=== PATIENT | male | born 1930 | race Caucasian/White ===

== ENCOUNTER → 2016-02-27 | Outpatient (CLI) | payer MEDICARE, OTHER | LOC: GMA 18:19 | PROVIDERS: ATTEND Nurse Practitioner Family | DX: N39.0 Urinary tract infection, site not specified (principal) ==

== ENCOUNTER 2016-06-09 06:15 | Emergency (ER) | payer MEDICARE, OTHER ==
[2016-06-09 06:38] VITALS: TEMP 98
--- NOTE | 2016-06-09 06:58 | ED.PDOC ---
History of Present Illness - General Source: patient, RN notes reviewed, Vital Signs reviewed, family - Son Exam Limitations: no limitations - History of Present Illness Initial Comments: Patient is an 85 y/o male who has a history of prostate cancer treated with radiation years ago. Recently he has had problems with urinary retention which has required him to have a hunter placed several times in the past several months. He saw Dr. Austin, his urologist, last week and had a hunter removed. He didn't have any problem until yesterday. He has not urinated since yesterday afternoon and he has gotten quite uncomfortable. He denies any dysuria. Timing/Duration: yesterday Quality: severe, other - pressure Onset Location: urethral Radiation: none Activites at Onset: none Prior abdominal problems: similar symptoms Improving Factors: nothing Worsening Factors: nothing Associated Symptoms: denies symptoms <Bindu Willis - Last Filed: 06/09/16 06:54> <Roosevelt Simmons - Last Filed: 06/09/16 07:20> - General Chief Complaint: Problem Stated Complaint: urge to void Time Seen by Provider: 06/09/16 06:54 - History of Present Illness Allergies/Adverse Reactions: Allergies NO KNOWN ALLERGY Allergy (Verified 06/09/16 06:41) Home Medications: Ambulatory Orders Amlodipine Besylate-Olmesartan [Timmy] 1 tab PO DAILY 06/09/16 Aspirin [Aspirin Childrens] 81 mg PO DAILY 06/09/16 Carvedilol [Coreg] 25 mg PO BID 06/09/16 Docusate Sodium [Colace Cap] 100 mg PO DAILY 06/09/16 Glipizide 5 mg PO DAILY@0700 06/09/16 Meloxicam [Mobic] 15 mg PO DAILY 06/09/16 Methocarbamol 500 mg PO TID 06/09/16 Pancrelipase (Lipase-Protease- [Zenpep] 1 cap PO TID 06/09/16 Simvastatin 20 mg PO DAILY 06/09/16 Spironolactone 25 mg PO DAILY 06/09/16 Sulfa/Trimeth 800/160 (Ds) Tab [Bactrim DS Tab] 1 ea PO BID #14 tab 06/09/16 Review of Systems - Review of Systems Constitutional: States: no symptoms reported EENTM: States: no symptoms reported Respiratory: States: no symptoms reported Cardiology: States: no symptoms reported Gastrointestinal/Abdominal: States: no symptoms reported Genitourinary: States: other - retention Musculoskeletal: States: no symptoms reported Skin: States: no symptoms reported Neurological: States: no symptoms reported Endocrine: States: no symptoms reported Hematologic/Lymphatic: States: no symptoms reported All other Systems: Reviewed and Negative <WillisBindu Arya - Last Filed: 06/09/16 06:54> Past Medical History (General) - Patient Medical History Hx Cardiac Disorders: Yes Hx Hypertension: Yes Hx Diabetes: Yes - 2006 Hx Cancer: Yes - prostate CA Surgical History: other - Vaccination History Hx Tetanus, Diphtheria Vaccination: No Hx Influenza Vaccination: No Hx Pneumococcal Vaccination: No - Social History Hx Alcohol Use: No Hx Substance Use: No <WillisBindu Arya - Last Filed: 06/09/16 06:54> Family Medical History - Family History Father Family History: Unknown Living Status: Hx Family Hypertension: Yes <Bindu Willis Arya - Last Filed: 06/09/16 06:54> Physical Exam - Physical Exam General Appearance: Alert, Comfortable - after hunter inserted, No apparent distress Eyes, Ears, Nose, Throat Exam: normal ENT inspection Neck: supple Cardiovascular/Respiratory: regular rate, rhythm, normal breath sounds, no respiratory distress Gastrointestinal/Abdominal: normal bowel sounds, non tender, soft, no organomegaly Back Exam: no CVA tenderness Extremity: normal range of motion - for age, non-tender, normal inspection, no pedal edema, no calf tenderness Neurologic: alert, normal mood/affect, oriented x 3 Skin Exam: normal color, warm/dry <Bindu Willis Arya - Last Filed: 06/09/16 06:54> Progress - Progress Progress: 06/09/16 06:59 About 900 mL urine returned after hunter placed. Patient felt much better. 06/09/16 07:01 Care turned over to Dr. Howell at 0701. - Results/Orders Results/Orders: 06/09/16 06:25 Temperature 98.0 F Pulse Rate [ 87 left] Respiratory 18 Rate Blood Pressure 133/83 [left] O2 Sat by Pulse 96 Oximetry - EKG/XRAY/CT CT Interpretation Call Back: Yes <Bindu Willis - Last Filed: 06/09/16 06:54> - Results/Orders Results/Orders: 06/09/16 06:42 Catheter:Hunter ONCE 06/09/16 06:43 URINE CULTURE W/COLONY COUNT Stat Laboratory Results Urine Color Yellow (Yellow) 06/09/16 06:43 Urine Appearance Sl cloudy (Clear) 06/09/16 06:43 Urine pH 5.5 (4.5-7.8) 06/09/16 06:43 Ur Specific [place] 1.015 (1.005-1.030) 06/09/16 06:43 Urine Protein Negative mg/dL 06/09/16 06:43 Urine Glucose (UA) Negative mg/dL (Negative) 06/09/16 06:43 Urine Ketones Trace mg/dL (NEGATIVE) 06/09/16 06:43 Urine Blood Negative (Negative) 06/09/16 06:43 Urine Nitrite Negative 06/09/16 06:43 Urine Bilirubin Negative (NEGATIVE) 06/09/16 06:43 Urine Urobilinogen 0.2 mg/dL (0.2-1.0) 06/09/16 06:43 Ur Leukocyte Esterase Small (Negative) H 06/09/16 06:43 Urine RBC 0 /hpf 06/09/16 06:43 Urine WBC 10-20 /hpf H 06/09/16 06:43 Ur Epithelial Cells 1-3 /hpf 06/09/16 06:43 Urine Bacteria 1+ 06/09/16 06:43 <Roosevelt Simmons R - Last Filed: 06/09/16 07:20> Departure - Departure Diet: resume usual diet <Bindu Willis K - Last Filed: 06/09/16 06:54> - Departure Time of Disposition: 07:14 <Roosevelt Simmons R - Last Filed: 06/09/16 07:20> - Departure Clinical Impression: Retention of urine, History of prostate cancer, History of prostate surgery Urinary tract infection Qualifiers: Urinary tract infection type: site unspecified Hematuria presence: without hematuria Qualified Code(s): N39.0 - Urinary tract infection, site not specified Disposition: Discharge to Home or Self Care Condition: Fair Departure Forms: ED Discharge - Pt. Copy, Patient Portal Self Enrollment Referrals: ANYI AUSTIN MD [Referring] - 1-5 Days Prescriptions: Sulfa/Trimeth 800/160 (Ds) Tab [Bactrim DS Tab] 1 ea PO BID #14 tab Home Medications: Ambulatory Orders Amlodipine Besylate-Olmesartan [Timmy] 1 tab PO DAILY 06/09/16 Aspirin [Aspirin Childrens] 81 mg PO DAILY 06/09/16 Carvedilol [Coreg] 25 mg PO BID 06/09/16 Docusate Sodium [Colace Cap] 100 mg PO DAILY 06/09/16 Glipizide 5 mg PO DAILY@0700 06/09/16 Meloxicam [Mobic] 15 mg PO DAILY 06/09/16 Methocarbamol 500 mg PO TID 06/09/16 Pancrelipase (Lipase-Protease- [Zenpep] 1 cap PO TID 06/09/16 Simvastatin 20 mg PO DAILY 06/09/16 Spironolactone 25 mg PO DAILY 06/09/16 Sulfa/Trimeth 800/160 (Ds) Tab [Bactrim DS Tab] 1 ea PO BID #14 tab 06/09/16 Additional Instructions: RETURN TO EMERGENCY ROOM NEEDED;CALL UP DR. AUSTIN TODAY FOR APPOINTMENT
[2016-06-09 07:51] VITALS: BP 138/73; O2SAT 94
== END 2016-06-09 07:30 | disposition home or self-care (01) ==
LOC: ER 06:15
DX: R33.9 Retention of urine, unspecified (principal); N39.0 Urinary tract infection, site not specified; I10 Essential (primary) hypertension; E11.9 Type 2 diabetes mellitus without complications; Z85.46 Personal history of malignant neoplasm of prostate; Z79.82 Long term (current) use of aspirin; Z79.899 Other long term (current) drug therapy

== ENCOUNTER 2016-06-13 20:42 | Emergency (ER) | payer MEDICARE, OTHER ==
--- NOTE | 2016-06-13 22:09 | ED.PDOC ---
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 He had a new hunter placed on 06/09/2016 due to urinary retention. He comes in tonight because he has had no UOP into his bag and he feels like his bladder is getting full. He didn't want to wait long to come in to have it evaluated. He has mild suprapubic tenderness. He is currently on Bactrim DS. Timing/Duration: 4-6 hours Severity: mild, moderate Improving Factors: nothing Worsening Factors: nothing Associated Symptoms: denies symptoms Allergies/Adverse Reactions: Allergies NO KNOWN ALLERGY Allergy (Verified 06/13/16 21:27) Home Medications: Ambulatory Orders Amlodipine Besylate-Olmesartan [Timmy] 1 tab PO DAILY 06/09/16 Aspirin [Aspirin Childrens] 81 mg PO DAILY 06/09/16 Carvedilol [Coreg] 25 mg PO BID 06/09/16 Docusate Sodium [Colace Cap] 100 mg PO DAILY 06/09/16 Glipizide 5 mg PO DAILY@0700 06/09/16 Meloxicam [Mobic] 15 mg PO DAILY 06/09/16 Methocarbamol 500 mg PO TID 06/09/16 Pancrelipase (Lipase-Protease- [Zenpep] 1 cap PO TID 06/09/16 Simvastatin 20 mg PO DAILY 06/09/16 Spironolactone 25 mg PO DAILY 06/09/16 Sulfa/Trimeth 800/160 (Ds) Tab [Bactrim DS Tab] 1 ea PO BID #14 tab 06/09/16 Ciprofloxacin [Cipro] 500 mg PO BID #14 tab 06/13/16 Review of Systems - Review of Systems Constitutional: States: no symptoms reported. Denies: fever EENTM: States: no symptoms reported Respiratory: States: no symptoms reported Cardiology: States: no symptoms reported Gastrointestinal/Abdominal: States: no symptoms reported Genitourinary: States: other - retention Musculoskeletal: States: no symptoms reported Skin: States: no symptoms reported Neurological: States: no symptoms reported Endocrine: States: no symptoms reported Hematologic/Lymphatic: States: no symptoms reported All other Systems: Reviewed and Negative Past Medical History (General) - Patient Medical History Hx Cardiac Disorders: Yes Hx Hypertension: Yes Hx Diabetes: Yes Hx Cancer: Yes - prostate CA - Vaccination History Hx Tetanus, Diphtheria Vaccination: Yes Hx Influenza Vaccination: Yes Hx Pneumococcal Vaccination: Yes Immunizations Up to Date: Yes - Social History Hx Tobacco Use: No Hx Alcohol Use: No Hx Substance Use: No Hx Substance Use Treatment: No Hx Depression: No Feels Threatened In Home Enviroment: No Feels Threatened In a Relationship: No Hx Physical Abuse: No Hx Emotional Abuse: No Hx Suspected Abuse: No - Activities of Daily Living Hospice Agency (if applicable):: None Family Medical History - Family History Father Family History: Unknown Living Status: Hx Family Hypertension: Yes Physical Exam - Physical Exam General Appearance: Alert, Comfortable, No apparent distress Ears, Nose, Throat: hearing grossly normal Respiratory: lungs clear, normal breath sounds, no respiratory distress, no accessory muscle use Cardiovascular/Chest: regular rate, rhythm, no edema, no gallop, no murmur Gastrointestinal/Abdominal: normal bowel sounds, soft, no organomegaly, tenderness - suprapubic-mild Extremity: pedal edema Neurologic: alert, normal mood/affect, oriented x 3 Skin Exam: normal color, warm/dry Progress - Progress Progress: 06/13/16 22:11 Patient's catheter was irrigated with 250 mL and there was a return of 400 mL. 06/13/16 22:53 Although Patient's last urine culture done on 06/09/2016 did not have any growth, this UA shows nitrites as well. Therefore, I will change his antibiotic from Bactrim DS to Cipro. - Results/Orders Results/Orders: 06/13/16 20:43 Temperature 98 F Pulse Rate [ 72 right radial] Respiratory 18 Rate Blood Pressure 134/62 [right upper arm] O2 Sat by Pulse 97 Oximetry 06/13/16 20:15 URINE CULTURE W/COLONY COUNT Stat Laboratory Results Urine Color Yellow (Yellow) 06/13/16 20:15 Urine Appearance Cloudy (Clear) 06/13/16 20:15 Urine pH 5.5 (4.5-7.8) 06/13/16 20:15 Ur Specific [place] 1.020 (1.005-1.030) 06/13/16 20:15 Urine Protein 30 mg/dL 06/13/16 20:15 Urine Glucose (UA) Negative mg/dL (Negative) 06/13/16 20:15 Urine Ketones Negative mg/dL (NEGATIVE) 06/13/16 20:15 Urine Blood Small (Negative) H 06/13/16 20:15 Urine Nitrite Positive H 06/13/16 20:15 Urine Bilirubin Negative (NEGATIVE) 06/13/16 20:15 Urine Urobilinogen 0.2 mg/dL (0.2-1.0) 06/13/16 20:15 Ur Leukocyte Esterase Moderate (Negative) H 06/13/16 20:15 Urine RBC 0-1 /hpf 06/13/16 20:15 Urine WBC >50 /hpf H 06/13/16 20:15 Ur Epithelial Cells 0 /hpf 06/13/16 20:15 Uric Acid Crystals 3+ /hpf 06/13/16 20:15 Amorphous Sediment 3+ 06/13/16 20:15 Urine Bacteria 3+ H 06/13/16 20:15 Urine Yeast 2+ budding 06/13/16 20:15 Departure - Departure Clinical Impression: Retention of urine Urinary tract infection Qualifiers: Urinary tract infection type: site unspecified Hematuria presence: without hematuria Qualified Code(s): N39.0 - Urinary tract infection, site not specified Time of Disposition: 22:55 Disposition: Discharge to Home or Self Care Condition: Fair Departure Forms: ED Discharge - Pt. Copy, Patient Portal Self Enrollment Instructions: DI for Urinary Retention in Men, DI for Urinary Tract Infection ( UTI) Diet: resume usual diet Referrals: Caleb Spring MD [Primary Care Provider] - 1-2 Weeks Prescriptions: Ciprofloxacin [Cipro] 500 mg PO BID #14 tab Home Medications: Ambulatory Orders Amlodipine Besylate-Olmesartan [Timmy] 1 tab PO DAILY 06/09/16 Aspirin [Aspirin Childrens] 81 mg PO DAILY 06/09/16 Carvedilol [Coreg] 25 mg PO BID 06/09/16 Docusate Sodium [Colace Cap] 100 mg PO DAILY 06/09/16 Glipizide 5 mg PO DAILY@0700 06/09/16 Meloxicam [Mobic] 15 mg PO DAILY 06/09/16 Methocarbamol 500 mg PO TID 06/09/16 Pancrelipase (Lipase-Protease- [Zenpep] 1 cap PO TID 06/09/16 Simvastatin 20 mg PO DAILY 06/09/16 Spironolactone 25 mg PO DAILY 06/09/16 Sulfa/Trimeth 800/160 (Ds) Tab [Bactrim DS Tab] 1 ea PO BID #14 tab 06/09/16 Ciprofloxacin [Cipro] 500 mg PO BID #14 tab 06/13/16 Additional Instructions: Keep follow up appointment with Dr. Austin. Call in AM to let him know of ED visit. Follow up in ED for continued retention or fever.
[2016-06-13] MEDS ORDERED: CIPROFLOXACIN 500 MG TAB PO ONE (22:56)
[2016-06-13 23:16] VITALS: TEMP 98.2
[2016-06-13 23:20] VITALS: BP 134/78; O2SAT 97
== END 2016-06-13 23:15 | disposition home or self-care (01) ==
LOC: ER 20:42
DX: N39.0 Urinary tract infection, site not specified (principal); R33.8 Other retention of urine; I10 Essential (primary) hypertension; E11.9 Type 2 diabetes mellitus without complications; Z85.46 Personal history of malignant neoplasm of prostate; Z96.0 Presence of urogenital implants; Z79.82 Long term (current) use of aspirin; Z79.899 Other long term (current) drug therapy

== ENCOUNTER 2016-06-16 06:02 | Emergency (ER) | payer MEDICARE, OTHER ==
--- NOTE | 2016-06-16 06:53 | ED.PDOC ---
History of Present Illness - General Chief Complaint: General Stated Complaint: catheter not draining Time Seen by Provider: 06/16/16 06:48 Source: patient Exam Limitations: no limitations - History of Present Illness Initial Comments: the patient is a 85-year-old male presenting to emergency room secondary to feeling that his urinary catheter is not draining very well. Overnight he developed an acute feeling of having some urinary retention, without draining through the bag, then he passed a significant amount of urine around the catheter. he had this catheter replaced just a few days ago. He thinks the catheter before was a little bit larger. He has only had a catheter in for about a week and a half according to him secondary to some urinary retention. No fevers. No nausea vomiting or diarrhea. Timing/Duration: 4-6 hours Severity: mild Improving Factors: nothing Worsening Factors: nothing Associated Symptoms: denies symptoms Allergies/Adverse Reactions: Allergies NO KNOWN ALLERGY Allergy (Verified 06/13/16 21:27) Home Medications: Ambulatory Orders Amlodipine Besylate-Olmesartan [Timmy] 1 tab PO DAILY 06/09/16 Aspirin [Aspirin Childrens] 81 mg PO DAILY 06/09/16 Carvedilol [Coreg] 25 mg PO BID 06/09/16 Docusate Sodium [Colace Cap] 100 mg PO DAILY 06/09/16 Glipizide 5 mg PO DAILY@0700 06/09/16 Meloxicam [Mobic] 15 mg PO DAILY 06/09/16 Methocarbamol 500 mg PO TID 06/09/16 Pancrelipase (Lipase-Protease- [Zenpep] 1 cap PO TID 06/09/16 Simvastatin 20 mg PO DAILY 06/09/16 Spironolactone 25 mg PO DAILY 06/09/16 Sulfa/Trimeth 800/160 (Ds) Tab [Bactrim DS Tab] 1 ea PO BID #14 tab 06/09/16 Ciprofloxacin [Cipro] 500 mg PO BID #14 tab 06/13/16 Review of Systems - Review of Systems Constitutional: States: no symptoms reported EENTM: States: no symptoms reported Respiratory: States: no symptoms reported Cardiology: States: no symptoms reported Gastrointestinal/Abdominal: States: abdominal pain - when the catheter is not draining Genitourinary: States: other - see above Musculoskeletal: States: see HPI Skin: States: see HPI Neurological: States: see HPI Endocrine: States: see HPI All other Systems: No Change from Baseline Past Medical History (General) - Patient Medical History Hx Cardiac Disorders: Yes Hx Hypertension: Yes Hx Diabetes: Yes Hx Cancer: Yes - prostate CA Surgical History: cholecystectomy - Vaccination History Hx Tetanus, Diphtheria Vaccination: Yes Hx Influenza Vaccination: Yes Hx Pneumococcal Vaccination: Yes - Social History Hx Tobacco Use: No Hx Alcohol Use: No Hx Substance Use: No Hx Substance Use Treatment: No Hx Depression: No Hx Physical Abuse: No Hx Emotional Abuse: No Hx Suspected Abuse: No - Triage Comment ED Triage Comment: Pt states he has a urinary catheter that was placed a week ago, now is leaking and not draining into bag. Also having some retention and moderate intermitten pain. Family Medical History - Family History Father Family History: Unknown Living Status: Hx Family Hypertension: Yes Physical Exam - Physical Exam General Appearance: Alert, Comfortable, No apparent distress Eye Exam: bilateral normal Ears, Nose, Throat: normal ENT inspection, normal pharynx, other - chronic decreased hearing bilaterally Neck: non-tender, full range of motion, supple Respiratory: chest non-tender, lungs clear, normal breath sounds, no respiratory distress, no accessory muscle use Cardiovascular/Chest: normal peripheral pulses, no edema, other - regular rate Peripheral Pulses: radial,right: 2+, radial,left: 2+, dorsalis pedis,right: 2+, dorsalis pedis,left: 2+ Gastrointestinal/Abdominal: non tender, soft Rectal Exam: deferred, other - examination catheter shows a small Monae and a leg bag. With rolling of the catheter and fingers he is getting what appears to be some drainage out of the catheter. No blood. No pain. No real suprapubic abdominal tenderness to palpation. Back Exam: normal inspection, no CVA tenderness, no vertebral tenderness Extremity: normal range of motion, non-tender, normal inspection, no pedal edema , normal capillary refill Neurologic: alert, normal mood/affect, oriented x 3 Skin Exam: normal color Comments: Vital Signs - 24 hr 06/16/16 06:13 Temperature 97.8 F Pulse Rate [ 71 monitor] Respiratory 18 Rate Blood Pressure 137/71 [Left Arm] O2 Sat by Pulse 94 L Oximetry Progress - Progress Progress: 06/16/16 07:01 the patient is an 85-year-old male presenting secondary to mild urinary retention with his new Monae catheter. After slightly advancing the catheter and rolling it with my fingers we are getting good drainage. We did instill 100 cc of saline in the bladder and didn't get it back. Quick ultrasound by me did show adequate drainage of the bladder with Monae catheter. For now we will leave the catheter alone and the patient has been instructed how to manipulate it to help it drain when he feels that it is not. If this continues to be a problem then a larger catheter may need to be placed. ER warnings were given. He needs to keep follow-up with urology at his primary care doctor. Departure - Departure Clinical Impression: Urinary retention Disposition: Discharge to Home or Self Care Condition: Fair Departure Forms: ED Discharge - Pt. Copy, Patient Portal Self Enrollment Instructions: DI for Urinary Retention in Men Diet: diabetic diet Activity: increase activity as tolerated Referrals: Caleb Spring MD [Primary Care Provider] - 1-2 Weeks Home Medications: Ambulatory Orders Amlodipine Besylate-Olmesartan [Timmy] 1 tab PO DAILY 06/09/16 Aspirin [Aspirin Childrens] 81 mg PO DAILY 06/09/16 Carvedilol [Coreg] 25 mg PO BID 06/09/16 Docusate Sodium [Colace Cap] 100 mg PO DAILY 06/09/16 Glipizide 5 mg PO DAILY@0700 06/09/16 Meloxicam [Mobic] 15 mg PO DAILY 06/09/16 Methocarbamol 500 mg PO TID 06/09/16 Pancrelipase (Lipase-Protease- [Zenpep] 1 cap PO TID 06/09/16 Simvastatin 20 mg PO DAILY 06/09/16 Spironolactone 25 mg PO DAILY 06/09/16 Sulfa/Trimeth 800/160 (Ds) Tab [Bactrim DS Tab] 1 ea PO BID #14 tab 06/09/16 Ciprofloxacin [Cipro] 500 mg PO BID #14 tab 06/13/16 Additional Instructions: the patient is an 85-year-old male presenting secondary to mild urinary retention with his new Monae catheter. After slightly advancing the catheter and rolling it with my fingers we are getting good drainage. We did instill 100 cc of saline in the bladder and didn't get it back. Quick ultrasound by me did show adequate drainage of the bladder with Monae catheter. For now we will leave the catheter alone and the patient has been instructed how to manipulate it to help it drain when he feels that it is not. If this continues to be a problem then a larger catheter may need to be placed. ER warnings were given. He needs to keep follow-up with urology at his primary care doctor.
[2016-06-16 07:12] VITALS: BP 122/71; TEMP 97.1; O2SAT 97
== END 2016-06-16 07:13 | disposition home or self-care (01) ==
LOC: ER 06:02
DX: R33.9 Retention of urine, unspecified (principal); T83.038A Leakage of other urinary catheter, initial encounter; I10 Essential (primary) hypertension; E11.9 Type 2 diabetes mellitus without complications; Z85.46 Personal history of malignant neoplasm of prostate; Z79.82 Long term (current) use of aspirin; Z79.899 Other long term (current) drug therapy

== ENCOUNTER → 2017-04-12 | Outpatient (CLI) | payer MEDICARE, OTHER | LOC: GMAJ 10:28 | PROVIDERS: ATTEND Family Medicine | DX: Z12.5 Encounter for screening for malignant neoplasm of prostate (principal) ==

== ENCOUNTER → 2017-08-19 | Outpatient (CLI) | payer MEDICARE, OTHER | LOC: GMAJ 12:05 | PROVIDERS: ATTEND Family Medicine | DX: Z85.46 Personal history of malignant neoplasm of prostate (principal); M10.071 Idiopathic gout, right ankle and foot ==

== ENCOUNTER 2017-08-22 08:11 | Day surgery (SDC) | payer MEDICARE, OTHER ==
[2017-08-22] MEDS ORDERED: MIDAZOLAM INJ 2 MG/2 ML VIAL ONE (09:15)
[2017-08-22] MEDS ORDERED: PROPARACAINE 0.5% OPHTH SOL 15 ML BTTL LEFT_EYE ONE (09:37)
[2017-08-22] MEDS ORDERED: DEXAMETHASONE 0.1% OPHTH SOL 1 DROP LEFT_EYE ONE ×2 (09:38→09:48)
[2017-08-22] MEDS ORDERED: BRIMONIDINE 0.2% OPHTH DROPS LEFT_EYE ONE ×2 (09:38→09:48)
[2017-08-22] MEDS ORDERED: TOBRAMYCIN SULF 0.3 % OPHT SOL 1 DROP LEFT_EYE ONE ×2 (09:39→09:48)
== END 2017-08-22 10:30 | disposition home or self-care (01) ==
LOC: AMB 08:11
PROVIDERS: ATTEND Ophthalmology
DX: H25.12 Age-related nuclear cataract, left eye (principal); E11.36 Type 2 diabetes mellitus with diabetic cataract; I48.91 Unspecified atrial fibrillation; I12.9 Hypertensive chronic kidney disease with stage 1 through stage 4 chronic kidney disease, or unspecified chronic kidney disease; E11.22 Type 2 diabetes mellitus with diabetic chronic kidney disease; N18.2 Chronic kidney disease, stage 2 (mild); I65.29 Occlusion and stenosis of unspecified carotid artery; E78.2 Mixed hyperlipidemia; M81.0 Age-related osteoporosis without current pathological fracture; Z79.82 Long term (current) use of aspirin; Z79.4 Long term (current) use of insulin; Z79.899 Other long term (current) drug therapy
CPT/HCPCS: 00142; 36416; 66984; 82948; J2250

== ENCOUNTER → 2017-08-26 | Outpatient (CLI) | payer MEDICARE, OTHER | LOC: GMAJ 10:37 | PROVIDERS: ATTEND Family Medicine | DX: R30.0 Dysuria (principal); R30.9 Painful micturition, unspecified; M51.16 Intervertebral disc disorders with radiculopathy, lumbar region ==

== ENCOUNTER 2017-09-05 06:05 | Day surgery (SDC) | payer MEDICARE, OTHER ==
[~2017-09-05 06:05] MED LIST: PROPARACAINE 0.5% OPHTH SOL 15 ML BTTL ONE; TROP 1%/CYCLOPEN 1%/PHENYL 2% DROPS ONE
[2017-09-05] MEDS ORDERED: MIDAZOLAM INJ 2 MG/2 ML VIAL ONE (08:12)
[2017-09-05] MEDS ORDERED: DEXAMETHASONE 0.1% OPHTH SOL 1 DROP RIGHT_EYE ONE ×2 (09:11→09:29)
[2017-09-05] MEDS ORDERED: LIDOCAINE 1% MPF 5 ML VIAL INJ ONE (09:11)
[2017-09-05] MEDS ORDERED: TOBRAMYCIN SULF 0.3 % OPHT SOL 1 DROP RIGHT_EYE ONE ×2 (09:11→09:29)
[2017-09-05] MEDS ORDERED: BRIMONIDINE 0.2% OPHTH DROPS RIGHT_EYE ONE ×2 (09:12→09:29)
== END 2017-09-05 10:10 | disposition home or self-care (01) ==
LOC: AMB 06:05
PROVIDERS: ATTEND Ophthalmology
DX: H25.11 Age-related nuclear cataract, right eye (principal); I10 Essential (primary) hypertension; I25.10 Atherosclerotic heart disease of native coronary artery without angina pectoris; E11.36 Type 2 diabetes mellitus with diabetic cataract; I48.91 Unspecified atrial fibrillation; I12.9 Hypertensive chronic kidney disease with stage 1 through stage 4 chronic kidney disease, or unspecified chronic kidney disease; E11.22 Type 2 diabetes mellitus with diabetic chronic kidney disease; N18.2 Chronic kidney disease, stage 2 (mild); M19.90 Unspecified osteoarthritis, unspecified site; E78.2 Mixed hyperlipidemia; Z79.82 Long term (current) use of aspirin; Z79.899 Other long term (current) drug therapy
CPT/HCPCS: 36415; 66984; 82948; J2250

== ENCOUNTER → 2018-05-01 | Outpatient (CLI) | payer MEDICARE, OTHER | LOC: GMAJ 11:02 | PROVIDERS: ATTEND Family Medicine | DX: M10.9 Gout, unspecified (principal) ==

== ENCOUNTER → 2018-09-18 | Outpatient (CLI) | payer MEDICARE, OTHER | LOC: GMAJ 10:31 | PROVIDERS: ATTEND Family Medicine | DX: Z85.46 Personal history of malignant neoplasm of prostate (principal); E11.9 Type 2 diabetes mellitus without complications; I10 Essential (primary) hypertension ==

== ENCOUNTER → 2018-12-20 | Outpatient (CLI) | payer MEDICARE, OTHER | LOC: GMAJS 10:42 | PROVIDERS: ATTEND Physician Assistant | DX: I10 Essential (primary) hypertension (principal) ==

== ENCOUNTER → 2019-02-02 | Outpatient (CLI) | payer MEDICARE, OTHER | LOC: NC 11:34 | PROVIDERS: ATTEND Family Medicine | DX: R30.0 Dysuria (principal); N18.2 Chronic kidney disease, stage 2 (mild) ==

== ENCOUNTER → 2019-11-02 | Outpatient (CLI) | payer MEDICARE, OTHER | LOC: GMAJ 10:55 | PROVIDERS: ATTEND Family Medicine | DX: M10.9 Gout, unspecified (principal); I50.9 Heart failure, unspecified; E11.9 Type 2 diabetes mellitus without complications; E78.2 Mixed hyperlipidemia; I10 Essential (primary) hypertension ==

== ENCOUNTER 2020-02-25 21:08 | Emergency (ER) | payer MEDICARE, OTHER ==
--- NOTE | 2020-02-25 21:15 | ED.PDOC ---
History of Present Illness - General Stated Complaint: Urinary retention Time Seen by Provider: 02/25/20 21:13 Source: patient Additional Information: Patient has a history of BPH. Patient was seen in the urology office in [place] earlier today. He had A urethroscopy performed by Dr. Austin. He was scheduled for Monae catheter insertion on February 26. Since 10 AM the patient has not been able to void. He has complained of Increasing pain and swelling of the lower abdomen. Prior to going into retention he did not have any dysuria or frequency. No fever or chills. Patient denies any other symptoms at this time. - History of Present Illness Timing/Duration: this morning Quality: severe Onset Location: suprapubic Radiation: none Activites at Onset: none Improving Factors: nothing Worsening Factors: nothing Associated Symptoms: denies symptoms Allergies/Adverse Reactions: Allergies NO KNOWN ALLERGY Allergy (Verified 06/13/16 21:27) Home Medications: Ambulatory Orders Amlodipine Besylate-Olmesartan [Timmy] 1 tab PO DAILY 06/09/16 Aspirin [Aspirin Childrens] 81 mg PO DAILY 06/09/16 Carvedilol [Coreg] 25 mg PO BID 06/09/16 Docusate Sodium [Colace Cap] 100 mg PO DAILY 06/09/16 Glipizide 5 mg PO DAILY@0700 06/09/16 Meloxicam [Mobic] 15 mg PO DAILY 06/09/16 Methocarbamol 500 mg PO TID 06/09/16 Pancrelipase (Lipase-Protease- [Zenpep] 1 cap PO TID 06/09/16 Simvastatin 20 mg PO DAILY 06/09/16 Spironolactone 25 mg PO DAILY 06/09/16 Sulfa/Trimeth 800/160 (Ds) Tab [Bactrim DS Tab] 1 ea PO BID #14 tab 06/09/16 Ciprofloxacin [Cipro] 500 mg PO BID #14 tab 06/13/16 Review of Systems - Review of Systems Constitutional: States: no symptoms reported EENTM: States: no symptoms reported Respiratory: States: no symptoms reported Cardiology: States: no symptoms reported Gastrointestinal/Abdominal: States: no symptoms reported Genitourinary: States: see HPI Musculoskeletal: States: no symptoms reported Skin: States: no symptoms reported Neurological: States: no symptoms reported All other Systems: Reviewed and Negative Past Medical History (General) - Patient Medical History Hx Cardiac Disorders: Yes Hx Hypertension: Yes Hx Diabetes: Yes Hx Cancer: Yes - prostate CA Hx MRSA: No - Vaccination History Hx Tetanus, Diphtheria Vaccination: Yes Hx Influenza Vaccination: Yes Hx Pneumococcal Vaccination: Yes - Social History Hx Tobacco Use: No Hx Alcohol Use: No Hx Substance Use: No Hx Substance Use Treatment: No Hx Depression: No Hx Physical Abuse: No Hx Emotional Abuse: No Hx Suspected Abuse: No Family Medical History - Family History Father Family History: Unknown Living Status: Hx Family Hypertension: Yes Physical Exam - Physical Exam General Appearance: Alert Eyes, Ears, Nose, Throat Exam: PERRL/EOMI Neck: non-tender Cardiovascular/Respiratory: regular rate, rhythm Gastrointestinal/Abdominal: normal bowel sounds, soft, tenderness - Very tender in the suprapubic area with a palpably distended bladder.Very tender in the suprapubic area with a palpably distended bladder. 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 Patient was given morphine 4 mg IM and Zofran ODT 8 mg. At 10:46 PM I discussed this patient with Dr. Willoughby, the urologist on-call for Dr. Austin. Dr. Willoughby recommended the patient be sent to [facility] to be seen by himself for bladder drainage procedure in the emergency department. The transfer center at [facility] was called at 10:56 PM. At that time patient was excepted for ER to ER transferBy Dr. Dino Joyce, the emergency physician attending physician. A mammogram and I will Transfer was prepared and the patient was sent by private vehicle to [facility] to be driven by his nurse. 02/26/20 04:14 Above entry is in error. It should A memorandum of transfer was prepared ... - Results/Orders Results/Orders: Vital Signs - 24 hr 02/25/20 02/25/20 21:35 22:30 Temperature 98.2 F Pulse Rate [ 80 83 Pulse Ox] Respiratory 16 16 Rate Blood Pressure 158/83 145/82 [Left Arm] O2 Sat by Pulse 96 96 Oximetry Departure - Departure Clinical Impression: Acute urinary retention, BPH with obstruction/lower urinary tract symptoms Disposition: Transfer to Hospital Departure Forms: ED Discharge - Pt. Copy, Patient Portal Self Enrollment Referrals: Caleb Spring MD [Primary Care Provider] - 1-2 Weeks Home Medications: Ambulatory Orders Amlodipine Besylate-Olmesartan [Timmy] 1 tab PO DAILY 06/09/16 Aspirin [Aspirin Childrens] 81 mg PO DAILY 06/09/16 Carvedilol [Coreg] 25 mg PO BID 06/09/16 Docusate Sodium [Colace Cap] 100 mg PO DAILY 06/09/16 Glipizide 5 mg PO DAILY@0700 06/09/16 Meloxicam [Mobic] 15 mg PO DAILY 06/09/16 Methocarbamol 500 mg PO TID 06/09/16 Pancrelipase (Lipase-Protease- [Zenpep] 1 cap PO TID 06/09/16 Simvastatin 20 mg PO DAILY 06/09/16 Spironolactone 25 mg PO DAILY 06/09/16 Sulfa/Trimeth 800/160 (Ds) Tab [Bactrim DS Tab] 1 ea PO BID #14 tab 06/09/16 Ciprofloxacin [Cipro] 500 mg PO BID #14 tab 06/13/16 Decision To Admit - Decistion To Admit Decision to Admit Date: 02/25/20 Decision to Admit Time: 02:46
[2020-02-25 21:55] VITALS: O2SAT 96
[2020-02-25 22:45] VITALS: BP 145/82
[2020-02-25] MEDS ORDERED: ONDANSETRON ODT 8 MG TAB SL ONE (22:48)
[2020-02-25] MEDS ORDERED: MORPHINE SULFATE INJ 10 MG/ML VIAL IM ONE (22:48)
[2020-02-25 23:25] VITALS: TEMP 98.1
== END 2020-02-25 23:25 | disposition short-term general hospital (02) ==
LOC: ER 21:08
DX: N40.1 Benign prostatic hyperplasia with lower urinary tract symptoms (principal); R33.8 Other retention of urine; R10.10 Upper abdominal pain, unspecified; I51.9 Heart disease, unspecified; E11.9 Type 2 diabetes mellitus without complications; I10 Essential (primary) hypertension; Z85.46 Personal history of malignant neoplasm of prostate; Z79.899 Other long term (current) drug therapy; Z79.82 Long term (current) use of aspirin

== ENCOUNTER → 2020-03-13 | Outpatient (CLI) | payer MEDICARE, OTHER | LOC: GMAJ 11:12 | PROVIDERS: ATTEND Family Medicine | DX: Z85.46 Personal history of malignant neoplasm of prostate (principal) ==